=== PATIENT | female | born 1960 | race Caucasian/White ===

== ENCOUNTER 2025-10-08 22:05 | Emergency (ER) | payer BC, OTHER ==
[~2025-10-08 22:05] MED LIST: Iopamidol 370 76% 100 ML VIAL ONE
[2025-10-08 22:27] LABS: #Basophils 0.1 thou/uL (0.0-0.2); #Eosinophils 0.2 thou/uL (0.0-0.7); #Lymphocytes 2.9 thou/uL (1.20-3.40); #Monocytes 0.6 thou/uL (0.11-0.59); #Neutrophils 2.5 thou/uL (1.40-6.50); %Basophils 1.1 % (0.0-1.0); %Eosinophils 3.6 % (0.0-10.0); %Lymphocytes 45.8 % (21.0-51.0); %Monocytes 9.2 % (0.0-10.0); %Neutrophils 40.3 % (42.0-75.0); Hematocrit 36.8 % (36.0-47.0); Hemoglobin 12.0 g/dL (12.0-16.0); Mean Corpuscular Hemoglobin 33.0 pg (27.0-31.0); Mean Corpuscular Volume 101.5 fl (78.0-98.0); Platelet Count 180 10x3/uL (130-400); Red Blood Cell (RBC) Count 3.63 mill/uL (4.20-5.40); White Blood Cell (WBC) Count 6.2 10x3/uL (4.8-10.8)
[2025-10-08 22:38] LABS: INR-International Normal Ratio 1.0; Prothrombin Time 13.3 sec (12.0-14.7)
[2025-10-08 22:39] LABS: PTT 26.8 sec (22.9-36.1)
[2025-10-08 22:48] LABS: ALT (SGPT) 15 U/L (Less than 34); AST (SGOT) 22 U/L (11-34); Albumin 4.1 g/dL (3.1-4.5); Alkaline Phosphatase 122 U/L (40-110); Anion Gap 16 mmol/L (10-20); BUN (Urea Nitrogen) 20 mg/dL (9.8-20.1); Bilirubin, Total 0.3 mg/dL (0.3-1.2); Calc. Creatinine Clearance 0 mL/min (70-130); Calcium 9.1 mg/dL (7.8-10.44); Carbon Dioxide 24 mmol/L (23-31); Chloride 104 mmol/L (98-107); Globulin 2.6 g/dL (2.4-3.5); Glucose 98 mg/dL (80-115); Potassium 4.1 mmol/L (3.5-5.1); Sodium 140 mmol/L (136-145)
[2025-10-08 22:54] LABS: Troponin I 0.016 ng/mL (< 0.028)
[2025-10-08 23:37] LABS: Glucose, Urine (Dipstick) Negative (Negative); Leukocyte Negative (Negative); Protein, Urine (Dipstick) Negative (Neg-Trace); Specific Gravity, Urine 1.010 (1.005-1.030)
[2025-10-08 23:40] LABS: Bacteria/HPF None Seen HPF (None Seen); CAUTI Indications for Culture Pelvic or flank pain; RBC/HPF 0-3 HPF (0-3); WBC/HPF 0-3 HPF (0-3)
[2025-10-08 23:41] LABS: Urine Culture Reflex No No
[2025-10-09] MEDS ORDERED: Aspirin Chewable 81 MG TAB ONE (00:27)
== END 2025-10-09 12:40 | disposition short-term general hospital (02) ==
LOC: MADERS 22:05
DX: G45.9 Transient cerebral ischemic attack, unspecified (principal); R60.0 Localized edema; G62.9 Polyneuropathy, unspecified; R29.700 NIHSS score 0
CPT/HCPCS: 70450; 70496; 70498; 71045; 80053; 81001; 83880; 84484; 85025; 85610; 85730; 93005; 94760; Q9967

== ENCOUNTER 2025-10-26 11:33 | Emergency (ER) | payer OTHER ==
[2025-10-26 12:05] LABS: INR-International Normal Ratio 1.0; PTT 28.4 sec (22.9-36.1); Prothrombin Time 12.9 sec (12.0-14.7)
[2025-10-26 12:11] LABS: Hematocrit 40.5 % (36.0-47.0); Hemoglobin 12.9 g/dL (12.0-16.0); MDiff Complete? YES; Mean Corpuscular Hemoglobin 32.3 pg (27.0-31.0); Mean Corpuscular Volume 101.1 fl (78.0-98.0); Platelet Adequacy Comment Appears Adequate; Platelet Count 208 10x3/uL (130-400); Red Blood Cell (RBC) Count 4.00 mill/uL (4.20-5.40); White Blood Cell (WBC) Count 5.6 10x3/uL (4.8-10.8)
[2025-10-26 12:13] LABS: ALT (SGPT) 10 U/L (Less than 34); AST (SGOT) 18 U/L (11-34); Albumin 4.0 g/dL (3.1-4.5); Alkaline Phosphatase 110 U/L (40-110); Anion Gap 16 mmol/L (10-20); BUN (Urea Nitrogen) 9 mg/dL (9.8-20.1); Bilirubin, Total 0.7 mg/dL (0.3-1.2); Calc. Creatinine Clearance 0 mL/min (70-130); Calcium 9.4 mg/dL (7.8-10.44); Carbon Dioxide 24 mmol/L (23-31); Chloride 107 mmol/L (98-107); Globulin 2.9 g/dL (2.4-3.5); Glucose 89 mg/dL (80-115); Potassium 4.0 mmol/L (3.5-5.1); Sodium 143 mmol/L (136-145)
[2025-10-26 12:19] LABS: Troponin I Less than 0.010 ng/mL (< 0.028)
[2025-10-26 12:22] LABS: Cocaine Metabolite Screen Negative (Negative); THC/Cannabinoid Screen Negative (Negative); Tricyclic Screen Negative (Negative)
== END 2025-10-26 15:50 | disposition left against medical advice (07) ==
LOC: MADERS 11:33
DX: I60.9 Nontraumatic subarachnoid hemorrhage, unspecified (principal); R29.701 NIHSS score 1
CPT/HCPCS: 70450; 80053; 80306; 84484; 85025; 85610; 85730; 93005; 94760